=== PATIENT | female | born 1995 | race Asian ===

== ENCOUNTER 2019-01-30 17:18 | Emergency (ER) | payer OTHER ==
[~2019-01-30] VITALS: Ht 154.9 cm; Wt 60.0 kg
[~2019-01-30 17:18] MED LIST: ACET1TAB40 PO; AZIT500T2 PO; IBUP-1542 PO
[2019-01-30 17:20] VITALS: Ht 154.9 cm; Wt 60.0 kg
[2019-01-30] MEDS ORDERED: ONDANSETRON (ODT) 4 MG TAB ODT STA (17:34)
[2019-01-30] MEDS ORDERED: ACETAMINOPHEN 325 MG TAB PO ONE (18:00)
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
[2019-01-30 18:48] VITALS: BP 106/61; PULSE 82; RESP 16
== END 2019-01-30 18:49 | disposition home or self-care (01) ==
LOC: MERGE 17:18 → FTE 17:18
DX: S00.03XA Contusion of scalp, initial encounter (principal); V49.50XA Passenger injured in collision with unspecified motor vehicles in traffic accident, initial encounter; Z91.040 Latex allergy status
CPT/HCPCS: 70450; Z7502; Z7610